=== PATIENT | female | born 2000 | race Caucasian/White ===

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

== ENCOUNTER 2024-05-14 18:19 | Emergency (ER) | payer BC, MEDICAID ==
[~2024-05-14] VITALS: Ht 165.1 cm; Wt 86.4 kg
[2024-05-14] MEDS: ketorolac trometh 15mg/ml vial 15 MG/ML ML IM ONE (21:13)
[2024-05-14 21:20] VITALS: BP 123/72; PULSE 80; RESP 16; TEMP 98.3; O2SAT 97
== END 2024-05-14 21:22 | disposition home or self-care (01) ==
LOC: ER 18:20
DX: R51.9 Headache, unspecified (principal)
CPT/HCPCS: 70486; 96372; 99285; J1885